=== PATIENT | male | born 1965 | race Caucasian/White ===

== ENCOUNTER 2019-09-16 09:44 | Emergency (ER) | payer BC ==
--- NOTE | 2019-09-16 10:11 | EDM.PDOC ---
ED HPI GENERAL MEDICAL PROBLEM - General Chief Complaint: Genitourinary Problem Stated Complaint: CANNOT URINATE Time Seen by Provider: 09/16/19 09:58 Source of Information: Reports: Patient History Limitations: Reports: No Limitations - History of Present Illness INITIAL COMMENTS - FREE TEXT/NARRATIVE: This 53 yo male patient reports to the ED due having difficulties urinating. The patient reports he last voided at about 0230 this morning, but has not been able to urinate since that time. The patient reports he feels pressure in his lower abdomen, feels like he has to urinate, but has not been able to urinate. The patient reports he has a history of an enlarged prostate and has had an elevated PSA that has been being monitored by his PCP. The patient reports he had a s imilar episode in the past, but was eventually able to urinate. Onset: Today Duration: Constant Location: Reports: Abdomen Quality: Reports: Pressure Severity: Moderate Improves with: Reports: None Worsens with: Reports: None Context: Reports: Other Associated Symptoms: Reports: No Other Symptoms Pelvic Pain Score (Numeric/FACES): 5 - Related Data Allergies Allergy/AdvReac Type Severity Reaction Status Date / Time morphine Allergy Hives Verified 09/16/19 10:04 Home Meds: Home Meds . [No Known Home Meds] 09/16/19 [History] ED ROS GENERAL - Review of Systems Review Of Systems: Comprehensive ROS is negative, except as noted in HPI. ED EXAM, RENAL/ - Physical Exam Exam: See Below Exam Limited By: No Limitations General Appearance: Alert, WD/WN, Moderate Distress Eye Exam: Bilateral Eye: EOMI, Normal Inspection, PERRL Ears: Normal External Exam, Normal Canal, Hearing Grossly Normal, Normal TMs Nose: Normal Inspection, Normal Mucosa, No Blood Throat/Mouth: Normal Inspection, Normal Lips, Normal Teeth, Normal Gums, Normal Oropharynx, Normal Voice, No Airway Compromise Head: Atraumatic, Normocephalic Neck: Normal Inspection, Supple, Non-Tender, Full Range of Motion Respiratory/Chest: No Respiratory Distress, Lungs Clear, Normal Breath Sounds, No Accessory Muscle Use, Chest Non-Tender Cardiovascular: Normal Peripheral Pulses, Regular Rate, Rhythm, No Edema, No Gallop, No JVD, No Murmur, No Rub GI/Abdominal: Normal Bowel Sounds, Soft, No Organomegaly, No Distention, No Abnormal Bruit, No Mass, Pelvis Stable, Tender (lower abdomen) (Male) Exam: Deferred Rectal (Males) Exam: Deferred Back Exam: Normal Inspection, Full Range of Motion, NT Extremities: Normal Inspection, Normal Range of Motion, Non-Tender, Normal Capillary Refill, No Pedal Edema Neurological: Alert, Oriented, CN II-XII Intact, Normal Cognition, Normal Gait, Normal Reflexes, No Motor/Sensory Deficits Psychiatric: Normal Affect, Normal Mood Skin Exam: Warm, Dry, Intact, Normal Color, No Rash Lymphatic: No Adenopathy Course - Vital Signs Last Recorded V/S: Last Vital Signs Temp 36.1 C 09/16/19 10:00 Pulse 58 L 09/16/19 10:00 Resp 16 09/16/19 10:00 BP 120/77 09/16/19 10:00 Pulse Ox 99 09/16/19 10:00 - Orders/Labs/Meds Orders: Active Orders 24 hr Category Date Time Status Insert Yu Catheter [Insert Urinary Catheter] [OM.PC] Care 09/16/19 10:30 Ordered Q24H Urinary Catheter Assessment [RC] ASDIRECTED Care 09/16/19 10:20 Ordered Retroperitoneal Ltd [US] Urgent Exams 09/16/19 10:03 Ordered UA RFX WHITNEY AND CULT IF INDIC [URIN] Urgent Lab 09/16/19 10:11 Ordered Labs: Laboratory Tests 09/16/19 Range/Units 10:57 Urine Color Yellow (YELLOW) Urine Appearance Clear (CLEAR) Urine pH 5.5 (5.0-9.0) Ur Specific [place] 1.015 (1.005-1.030) Urine Protein Negative (NEGATIVE) Urine Glucose (UA) Negative (NEGATIVE) Urine Ketones Negative (NEGATIVE) Urine Occult Blood Trace-intact H (NEGATIVE) Urine Nitrite Negative (NEGATIVE) Urine Bilirubin Negative (NEGATIVE) Urine Urobilinogen 0.2 (0.2-1.0) mg/dL Ur Leukocyte Esterase Negative (NEGATIVE) Urine RBC 0-5 /HPF Urine WBC 0-5 (0-5/HPF) /HPF Ur Epithelial Cells Not seen (NOT SEEN) /HPF Amorphous Sediment Rare (NOT SEEN) /HPF Urine Bacteria Not seen (0-FEW/HPF) /HPF Urine Mucus Rare (NOT SEEN) /LPF Departure - Departure Time of Disposition: 11:23 Disposition: Home, Self-Care 01 Condition: Fair Clinical Impression: Urinary (tract) obstruction - Discharge Information *PRESCRIPTION DRUG MONITORING PROGRAM REVIEWED*: Not Applicable *COPY OF PRESCRIPTION DRUG MONITORING REPORT IN PATIENT MP: Not Applicable Forms: ED Department Discharge Care Plan Goals: The patient was advised of the examination and lab results during the visit. The patient's bladder was drained using a catheter. The patient was encourage to urinate frequently over the next 24 hours. If the patient has any additional symptoms or further concerns, the patient should either return to the emergency department or visit his primary care facility. Sepsis Event Note (ED) - Evaluation Sepsis Screening Result: No Definite Risk - Focused Exam Vital Signs: Vital Signs Temp Pulse Resp BP Pulse Ox 09/16/19 10:00 36.1 C 58 L 16 120/77 99 - My Orders Last 24 Hours: My Active Orders 09/16/19 10:03 Retroperitoneal Ltd [US] Urgent 09/16/19 10:11 UA RFX WHITNEY AND CULT IF INDIC [URIN] Urgent 09/16/19 10:20 Urinary Catheter Assessment [RC] ASDIRECTED 09/16/19 10:30 Insert Yu Catheter [Insert Urinary Catheter] [OM.PC] Q24H - Assessment/Plan Last 24 Hours: My Active Orders 09/16/19 10:03 Retroperitoneal Ltd [US] Urgent 09/16/19 10:11 UA RFX WHITNEY AND CULT IF INDIC [URIN] Urgent 09/16/19 10:20 Urinary Catheter Assessment [RC] ASDIRECTED 09/16/19 10:30 Insert Yu Catheter [Insert Urinary Catheter] [OM.PC] Q24H
--- NOTE | 2019-09-16 12:33 | US ---
EXAMINATION: Retroperitoneal Ltd SEX: Male AGE: 53 years CLINICAL HISTORY: 53-year-old male "trouble urinating" appears Symmetrically full urinary bladder volume (no post void) 677 cc. Bladder measures 13.8 cm L x 13.3 cm W x 9.1 cm AP diameter. Uniformly thick bladder wall without sign of mucosal mass or mobile dependent intraluminal echogenic "shadowing" bladder stones. No extravesicular pelvic mass lesion. Abnormally enlarged homogeneously dense midline PROSTATE GLAND measures 4.5 x 5.5 cm x 6.2 (80 mL volume) and protrudes into the base of the urinary bladder, midline. CONCLUSION: Abnormal. Large prostate gland. Large volume urinary bladder.
== END 2019-09-16 11:40 | disposition home or self-care (01) ==
LOC: DL.ED 09:44
DX: N13.9 Obstructive and reflux uropathy, unspecified (principal); Z88.5 Allergy status to narcotic agent
CPT/HCPCS: 51701; 51702; 51798; 76775; 81001; 99283-25